=== PATIENT | male | born 1965 | race African-American/Black ===

== ENCOUNTER 2020-10-11 15:08 | Inpatient (IN) | payer OTHER ==
[2020-10-11 16:03] LABS: #Basophils 0.1 thou/uL (0.0-0.2); #Eosinphils 0.1 thou/uL (0.0-0.7); #Lymphocytes 1.8 thou/uL (1.20-3.40); #Monocytes 0.8 thou/uL (0.11-0.59); #Neutrophils 9.2 thou/uL (1.40-6.50); %Basophils 0.9 % (0.0-1.0); %Eosinophils 0.9 % (0.0-10.0); %Lymphocytes 14.8 % (21.0-51.0); %Neutrophils 76.6 % (42.0-75.0); Hemoglobin 12.3 g/dL (14.0-18.0); Mean Corpuscular HGB CONC 34.2 g/dL (32.0-36.0); Mean Corpuscular Hemoglobin 28.2 pg (27.0-31.0); Mean Corpuscular Volume 82.5 fL (78.0-98.0); Mean Platelet Volume 8.9 fL (7.4-10.4); Platelet Count 277 thou/uL (130-400); RBC Distribution Width 14.1 % (11.5-14.5); Red Blood Cell (RBC) Count 4.34 mill/uL (4.70-6.10)
[2020-10-11 16:15] LABS: INR-International Normal Ratio 1.1; PTT 32.8 sec (22.9-36.1)
[2020-10-11 16:28] LABS: ALT (SGPT) 15 U/L (8-55); AST (SGOT) 20 U/L (5-34); Albumin 4.1 g/dL (3.5-5.0); Alkaline Phosphatase 106 U/L (40-110); Anion Gap 13 mmol/L (10-20); BUN (Urea Nitrogen) 35 mg/dL (8.4-25.7); Bilirubin, Total 0.4 mg/dL (0.2-1.2); CK (CPK) 232 U/L (30-200); Calc. Creatinine Clearance 0 mL/min (70-130); Calcium 9.5 mg/dL (7.8-10.44); Carbon Dioxide 29 mmol/L (22-29); Chloride 101 mmol/L (98-107); Globulin 4.1 g/dL (2.4-3.5); Glucose 103 mg/dL (70-105); Potassium 4.2 mmol/L (3.5-5.1); Protein, Total 8.2 g/dL (6.0-8.3); Sodium 139 mmol/L (136-145)
[2020-10-11] MEDS ORDERED: Acetaminophen 325 MG TAB PO PRN (18:29)
[2020-10-11] MEDS ORDERED: Ondansetron PF 4 MG/2 ML Vial IVP PRN (18:29)
[2020-10-11 21:57] VITALS: BMI 49.1
[2020-10-12] MEDS ORDERED: SUMAtriptan Succinate 25 MG TAB PO PRN (00:05)
[2020-10-12] MEDS: Sodium Chloride 0.9% 1,000 ML IV SCH ×3 (00:11→22:06)
[2020-10-12] MEDS ORDERED: HYDROcodone/Acetaminophen 5/325 mg Tablet PO PRN (00:29)
[2020-10-12 01:08] LABS: SARS-CoV-2 PCR by NAA Not Detected (NotDetected)
[2020-10-12 03:00] LABS: Troponin I 0.018 ng/mL (< 0.028)
[2020-10-12 04:53] LABS: #Basophils 0.1 thou/uL (0.0-0.2); #Eosinphils 0.2 thou/uL (0.0-0.7); #Lymphocytes 2.5 thou/uL (1.20-3.40); #Monocytes 1.4 thou/uL (0.11-0.59); #Neutrophils 9.2 thou/uL (1.40-6.50); %Basophils 0.7 % (0.0-1.0); %Eosinophils 1.6 % (0.0-10.0); %Lymphocytes 18.7 % (21.0-51.0); %Monocytes 10.2 % (0.0-10.0); %Neutrophils 68.9 % (42.0-75.0); Hemoglobin 11.4 g/dL (14.0-18.0); Mean Corpuscular HGB CONC 32.6 g/dL (32.0-36.0); Mean Corpuscular Hemoglobin 26.9 pg (27.0-31.0); Mean Corpuscular Volume 82.4 fL (78.0-98.0); Mean Platelet Volume 8.9 fL (7.4-10.4); Platelet Count 238 thou/uL (130-400); RBC Distribution Width 14.1 % (11.5-14.5); Red Blood Cell (RBC) Count 4.23 mill/uL (4.70-6.10); White Blood Cell (WBC) Count 13.3 thou/uL (4.8-10.8)
[2020-10-12 05:15] LABS: Anion Gap 13 mmol/L (10-20); BUN (Urea Nitrogen) 34 mg/dL (8.4-25.7); Calc. Creatinine Clearance 86 mL/min (70-130); Carbon Dioxide 29 mmol/L (22-29); Cardiac Risk 3.8 (Less than 4.5); Chloride 101 mmol/L (98-107); Cholesterol 143 mg/dl (< 200 Desired); Glucose 97 mg/dL (70-105); HDL Cholesterol 38 mg/dL (>60 Neg Risk); LDL Cholesterol, Calculated 88 mg/dL; Potassium 3.8 mmol/L (3.5-5.1); Sodium 139 mmol/L (136-145); Triglycerides 84 mg/dL (Less than 150)
[2020-10-12 05:19] LABS: Troponin I 0.034 ng/mL (< 0.028)
[2020-10-12] MEDS: Chlorthalidone 25 MG TAB PO SCH (08:45)
[2020-10-12] MEDS: Colchicine 0.6 MG TAB PO SCH ×2 (08:45→22:06)
[2020-10-12] MEDS: Gabapentin 300 MG CAP PO SCH ×3 (08:45→22:05)
[2020-10-12] MEDS: Carvedilol 25 MG TAB PO SCH ×2 (08:45→22:06)
[2020-10-12] MEDS: Atorvastatin Calcium 40 MG TAB PO SCH (08:46)
[2020-10-12] MEDS: Amlodipine 10 MG TAB PO SCH (08:47)
[2020-10-12] MEDS: Apixaban 5 MG TAB PO SCH ×2 (08:47→22:06)
[2020-10-12] MEDS: Aspirin 81 mg Enteric Coated Tablet PO SCH (08:47)
[2020-10-12 18:20] LABS: Troponin I Less than 0.010 ng/mL (< 0.028)
[2020-10-13 04:56] LABS: #Basophils 0.1 thou/uL (0.0-0.2); #Eosinphils 0.2 thou/uL (0.0-0.7); #Lymphocytes 1.9 thou/uL (1.20-3.40); #Monocytes 0.8 thou/uL (0.11-0.59); #Neutrophils 7.1 thou/uL (1.40-6.50); %Basophils 0.9 % (0.0-1.0); %Eosinophils 1.6 % (0.0-10.0); %Monocytes 8.1 % (0.0-10.0); %Neutrophils 70.4 % (42.0-75.0); Hemoglobin 11.4 g/dL (14.0-18.0); Mean Corpuscular HGB CONC 32.2 g/dL (32.0-36.0); Mean Corpuscular Hemoglobin 26.7 pg (27.0-31.0); Mean Corpuscular Volume 83.2 fL (78.0-98.0); Mean Platelet Volume 9.1 fL (7.4-10.4); Platelet Count 250 thou/uL (130-400); RBC Distribution Width 14.1 % (11.5-14.5); Red Blood Cell (RBC) Count 4.25 mill/uL (4.70-6.10)
[2020-10-13 05:18] LABS: Anion Gap 11 mmol/L (10-20); BUN (Urea Nitrogen) 30 mg/dL (8.4-25.7); Calc. Creatinine Clearance 98 mL/min (70-130); Calcium 9.2 mg/dL (7.8-10.44); Carbon Dioxide 30 mmol/L (22-29); Chloride 102 mmol/L (98-107); Glucose 97 mg/dL (70-105); Potassium 3.7 mmol/L (3.5-5.1); Sodium 139 mmol/L (136-145)
[2020-10-13] MEDS: Aspirin 81 mg Enteric Coated Tablet PO SCH (09:09)
[2020-10-13] MEDS: Colchicine 0.6 MG TAB PO SCH (09:09)
[2020-10-13] MEDS: Gabapentin 300 MG CAP PO SCH ×2 (09:09→16:14)
[2020-10-13] MEDS: Amlodipine 10 MG TAB PO SCH (09:09)
[2020-10-13] MEDS: Chlorthalidone 25 MG TAB PO SCH (09:10)
[2020-10-13] MEDS: Atorvastatin Calcium 40 MG TAB PO SCH (09:10)
[2020-10-13] MEDS: Carvedilol 25 MG TAB PO SCH (09:10)
[2020-10-13] MEDS: Apixaban 5 MG TAB PO SCH (09:10)
[2020-10-13] MEDS: Sodium Chloride 0.9% 1,000 ML IV SCH (16:14)
[2020-10-13 17:19] VITALS: BP 140/100; TEMP 98
== END 2020-10-13 16:55 | disposition home or self-care (01) | DRG 69 ==
LOC: ERS 15:08 → ERHOLD 16:46 → 2NO 21:23 → OBSVTOIN 10-13 10:13
PROVIDERS: ADMIT Internal Medicine; ATTEND Internal Medicine
DX: G45.9 Transient cerebral ischemic attack, unspecified (principal); I21.A1 Myocardial infarction type 2; Z20.822 Contact with and (suspected) exposure to COVID-19; I12.9 Hypertensive chronic kidney disease with stage 1 through stage 4 chronic kidney disease, or unspecified chronic kidney disease; E78.5 Hyperlipidemia, unspecified; G93.89 Other specified disorders of brain; G40.909 Epilepsy, unspecified, not intractable, without status epilepticus; I49.3 Ventricular premature depolarization; N18.9 Chronic kidney disease, unspecified; Z79.899 Other long term (current) drug therapy; Z79.01 Long term (current) use of anticoagulants
CPT/HCPCS: 36415; 36416; 70450; 71045; 80048; 80053; 80061; 82550; 84484; 85025; 85610; 85730; 87635; 93005; 93306; 93880; 95712; 95819; 95957; G0378; U0003; U0005